=== PATIENT | female | born 1960 | race Caucasian/White ===

== ENCOUNTER → 2021-10-17 | Emergency (ER) | payer OTHER ==
[~2021-10-17] VITALS: Ht 154.9 cm; Wt 63.0 kg
[~2021-10-17] MED LIST: KETO10TA2 PO; MONISTAT 745 GM VG; ORPH100T PO
== END | disposition home or self-care (01) ==
LOC: ER 10:34
DX: R53.81 Other malaise (principal); Z20.822 Contact with and (suspected) exposure to COVID-19